=== PATIENT | male | born 1960 | race Caucasian/White ===

== ENCOUNTER → 2025-03-30 13:13 | Outpatient (REF) | payer BC, SELFPAY | LOC: RAD 13:13 | PROVIDERS: ATTENDING PHYSICIAN Family Medicine | DX: S05.41XA Penetrating wound of orbit with or without foreign body, right eye, initial encounter (principal); S05.42XA Penetrating wound of orbit with or without foreign body, left eye, initial encounter | CPT/HCPCS: 70030 ==